=== PATIENT | male | born 1935 | race Caucasian/White ===

== ENCOUNTER → 2018-12-04 | Outpatient (CLI) | payer OTHER, MEDICARE ==
[~2018-12-04] VITALS: Ht 172.7 cm; Wt 68.0 kg
[~2018-12-04] MED LIST: AMLODIPINE BESY10 MG PO; BISACODYL SUPP10 MG RECTAL; DURAGESIC1 EACH TRANSDERM; FLEET ENEMA133 ML RECTAL; FLOMAX0.4 MG PO; GABAPENTIN100 MG PO; GLIPIZIDE ER5 MG PO; JANUVIA25 MG PO; LISINOPRIL40 MG PO; METFORMIN HCL500 MG PO; MILK OF MA400 MG/5 M PO; NORCO 5-325 TA1 EACH PO; POLYOX WSR-3011 GM PO; PROTONIX40 M2 PO; PYRIDOXINE HCL50 MG PO; SPIRONOLACTONE25 MG PO; TUMS PO
[2018-12-04 08:54] VITALS: BP 149/72
[2018-12-04 09:10] LABS: HEMATOCRIT 29.1 % (42.0-52.0); HEMOGLOBIN 9.3 gm/dL (14.0-18.0); MCH 28.7 pg (26.0-34.0); MCV 89.5 fL (80.0-100.0); MPV 7.1 fl. (7.2-11.1); RBC 3.26 mil/uL (4.50-6.00); RDW-CV 15.7 % (10.5-14.5)
[2018-12-04 09:21] LABS: APTT 28.5 Seconds (25.0-31.3); PROTIME 10.6 Seconds (9.20-11.50)
[2018-12-04 17:40] VITALS: BP 116/59
== END | disposition home or self-care (01) ==
LOC: M.INT 07:32
PROVIDERS: Radiology Diagnostic Radiology
DX: Z45.2 Encounter for adjustment and management of vascular access device (principal); R18.0 Malignant ascites; C18.9 Malignant neoplasm of colon, unspecified; I10 Essential (primary) hypertension; E11.9 Type 2 diabetes mellitus without complications; E78.5 Hyperlipidemia, unspecified; Z87.19 Personal history of other diseases of the digestive system; Z82.49 Family history of ischemic heart disease and other diseases of the circulatory system; Z87.891 Personal history of nicotine dependence; Z79.899 Other long term (current) drug therapy; Z79.01 Long term (current) use of anticoagulants